=== PATIENT | female | born 1935 | race Caucasian/White ===

== ENCOUNTER 2020-09-12 10:04 | Observation (INO) | payer MEDICARE ==
[~2020-09-12] VITALS: Ht 160 cm; Wt 84.4 kg
[~2020-09-12 10:04] MED LIST: SEPTRA DS TABL1 EACH PO; TOPROL XL25 MG PO
--- NOTE | 2020-09-12 13:18 | EKG ---
[facility] [address] [facility] [place] [address] Signed Atrial fibrillation with rapid ventricular response Voltage criteria for left ventricular hypertrophy Marked ST abnormality, possible inferolateral subendocardial injury Abnormal ECG No previous ECGs available Confirmed by SURJIT CARROLL MD ([id number]) on 09/12/2020 1:18:21 PM Electronically Signed By: SURJIT CARROLL MD 09/12/20 1318 PATIENT NAME: RONY MEYER Electrocardiogram DATE OF : 39 PHYSICIAN: SURJIT CARROLL MD REPORT #: [id number] REPORT IS CONFIDENTIAL AND NOT TO BE RELEASED WITHOUT AUTHORIZATION
--- NOTE | 2020-09-12 14:50 | NUR ---
REPORT RECEIVED FROM Domenico GONZALEZ, WILL CONTINUE PLAN OF CARE WHEN PT ARRIVES.
--- NOTE | 2020-09-12 16:21 | NUR ---
PT ARRIVED TO CCU AT ABOUT 1510. PT ALERT AND ORIENTED AND BROUGHT DOWN VIA STRETCHER BY SLOT ROUTER WITH BELONGINGS AND DAUGHTER. PT ASSISTED ONTO THE BED USING THE DRAW SHEET AND 2 OTHER RNS. AFTER TAKING VITALS PT NEEDED TO VOID, PT ASSISTED UP TO BSC TO VOID AND ALSO HELPED BACK INTO BED. PT NOW LAYING IN BED, PT REPORTS NO SOB, DYSPNEA, OR PAIN WHEN ASKED. SCHEDULED MEDICATIONS ADMINISTERED AT THIS TIME AND ASSESSMENT COMPLETED. LUNGS ARE CLEAR/DIMINISHED IN BASES, PT ON ROOM AIR, SPO2 97%, ABDOMEN SOFT, NO PAIN UPON PALPATION, AND ACTIVE, SKIN IS DRY ON LOWER LEGS/FEET BILAT AND EDEMATOUS 2+ WITH SOME REDDNESS AROUND THE SHINS. PT STATES THE AREA IS SENSITIVE. RADIAL PULSES STRONG PEDAL PULSES +1. PT NOW IN BED AND REPORTS NO FURTHER NEEDS, DAUGHTER AT BEDSIDE. WILL CONTINUE PLAN OF CARE, CALL LIGHT IN REACH, BED IN LOWEST POSITION, IVF INFUSING.
--- NOTE | 2020-09-12 17:43 | NUR ---
THIS RN IN TO CHECK ON PT, PT LAYING IN BED AWAKE AND ALERT, LAB IN TO DRAW BLOOD, DAUGHTER AT BEDSIDE. PT STATED SHE WAS HAVING MILD HEADACHES 3/10 AND BUT STATED IT HAD BEEN WORSE A FEW MINUTES EARLIER BUT STATED SHE DID NOT NEED ANY PAIN MEDICATION AT THIS TIME. DR. CARROLL NOTIFIED IN PERSON ON PT'S HEADACHE AND ASKED IF SHE COULD HAVE A PRN PAIN MEDICATION ON HER EMAR. NO NEW ORDERS AT THIS TIME, WILL CONTINUE PLAN OF CARE. CALL LIGHT IN REACH, BED IN LOWEST POSITION, DAUGHTER AT BEDSIDE, IVF INFUSING
--- NOTE | 2020-09-12 18:20 | NUR ---
LAB CALLED TO NOTIFY OF CRITICAL TROPONIN T VALUE OF 0.044 ON THIS PT. THIS RN NOTIFIED PRIMARY RN CAT.
--- NOTE | 2020-09-12 18:21 | NUR ---
THIS RN IN TO CHECK ON PT. PT LAYING IN BED AWAKE AND ALERT. PT STATES SHE STILL HAS A MILD HEADACHE BUT DENIED PAIN MEDICATION AT THIS TIME. PT REPORTS NO FURTHER NEEDS AT THIS TIME. DR. CARROLL AND DR. NGUYEN UPDATED ON PT'S CRITICAL LAB VALUE (SEE CHART). WILL CONTINUE PLAN OF CARE.
--- NOTE | 2020-09-12 19:01 | NUR ---
DR. NGUYEN IN ROOM TO GET CONSENT FOR SCOPE AT AROUND 1845. AFTERWARDS THIS RN RESPONDED TO PT CALL LIGHT. PT STATED SHE NEEDED TO VOID, PT ASSISTED UP TO BEDSIDE COMMODE. BEDCHANGE DONE AT THIS TIME DUE TO "DRIBBLING" AND NEW PAD GIVEN TO PT AT THIS TIME. PT REPORTS NO FURTHER NEEDS AT THIS TIME AND DENIES PAIN. PT REPORTS NO FURTHER NEEDS AT THIS TIME, WILL CONTINUE PLAN OF CARE. CALL LIGHT IN REACH, BED IN LOWEST POSITION, IVF INFUSING ORDERED, LR ON STRAIGHT TUBING AT BEDSIDE.
--- NOTE | 2020-09-12 19:29 | NUR ---
MINISTER OF RELIGION AND [employer] NURSE IN TO UPDATE PT ON PROCEDURE AND TRANSFER HER FOR HER EGD AND CONTINUE PLAN OF CARE.
--- NOTE | 2020-09-12 19:30 | NUR ---
SHIFT REPORT RECEIVED FROM DANY SHELTON. PT OFF UNIT FOR EGD WITH CARL. Kmep RN
--- NOTE | 2020-09-12 20:07 | NUR ---
PT BACK TO ROOM AT THIS TIME, ROLL OVER PRESS OPERATOR AT BEDSIDE.
--- NOTE | 2020-09-12 20:11 | NUR ---
09/12/202010 Dinah Bocanegra 2004-PATIENT ARRIVED BACK TO ROOM 127 FOR RECOVERY. PATIENT REACTIVE TO VERBAL STIMULI EYES CLOSED. ANSWERING QUESTIONS. DENIES PAIN OR NAUSEA. 6L MASK RR EVEN 100% SR. NO DRAINAGE NOTED. IVF INFUSING.
--- NOTE | 2020-09-12 20:12 | CONS ---
[facility] [address] [place], [place] [address] Signed DATE OF CONSULTATION: 09/12/2020 CHIEF COMPLAINT: Nausea and vomiting. HISTORY OF PRESENT ILLNESS: Jessi is an 85-year-old female who has never had any dysphagia whatsoever. She was eating steak 3 or 4 days ago and it got stuck in her esophagus. She has had nausea, vomiting, and anorexia ever since. Of course, she cannot take her metoprolol, so now her atrial fibrillation has rapid ventricular rate. She was in the emergency room earlier today. She was given Cardizem and Lopressor IV and that has helped tremendously to bring her rate down right around 100. Her troponin is a little elevated, but it is from the tachycardia. She has been admitted by the Internal Medicine service. I have been asked to see her for consultation for upper endoscopy and removal of the foreign body. Jessi tells me she has no previous dysphagia and has never had anything stuck previously. She said she loves steak and eats it frequently. She is now in the ICU under monitored care. PAST MEDICAL HISTORY: Hypertension, atrial fibrillation. PAST SURGICAL HISTORY: lazy eye, appendectomy, and partial hysterectomy. SOCIAL HISTORY: She does not smoke or drink. She had five children. She lost two children. She lives with her son who has been with her whole life. She drives. She is retired from office work. Her son, is a registered nurse at [phone]. Jessi and her son Jagdeep have an apartment. She is single at this point. She drives. Dr. Bhupendra Sampson is her primary care provider. She prefers the [facility]. FAMILY HISTORY: A sister had some type of abdominal cancer. REVIEW OF SYSTEMS: She had 10 systems reviewed and no new findings. ALLERGIES: None. MEDICATIONS: Metoprolol 25 mg p.o. daily. Electronically Signed By: LOPEZ NGUYEN MD 09/12/202011 PATIENT NAME: JESSI MEYER CONSULTATION DATE OF : 39 REPORT #: [id number] PHYSICIAN: LOPEZ NGUYEN MD PCP: BHUPENDRA WEBB DO REPORT IS CONFIDENTIAL AND NOT TO BE RELEASED WITHOUT AUTHORIZATION [facility] [address] [place], [place] [address] Signed PHYSICAL EXAMINATION: VITAL SIGNS: Her blood pressure is 176/95, heart rate 86, respiratory rate 16, temperature of 97.7. She is 100% on room air. She is 5 feet 3 inches at 84 kg. GENERAL: Jessi is an 85-year-old female lying supine in her ICU bed. She does not appear ill or toxic. She is very pleasant, answers appropriately. LUNGS: Generally clear to auscultation bilaterally. HEART : Little tachycardic around 103, but it is sinus. There is no murmur. ABDOMEN: Soft, nontender. Currently she is controlling her secretions. LABORATORY DATA: Her white blood count is 6.8, hemoglobin 14, neutrophils 83. Electrolytes are unremarkable. Troponin is 0.044, which is slightly elevated. Urinalysis showed some bacteria. The liver function tests are negative. Albumin is 4.0. The COVID is negative. RADIOGRAPHIC STUDIES: A barium swallow was done and she appears to have a foreign body in the mid to distal esophagus. ASSESSMENT AND PLAN: Jessi is an 85-year-old female who presents with an esophageal foreign body, namely steak. She is medically stable at this point. I have reviewed this with our hospitalist, Dr. Vonnie Meléndez. We will plan on taking her to the endoscopy suite shortly under monitored anesthesia care for upper endoscopy and removal of the foreign body. There is risk including, but not limited to gas bloating, crampy abdominal pain, bleeding, perforation requiring surgery, and missed diagnosis. She has expressed understanding and would like to proceed. Lopez Nguyen MD [facility]/MODL /[id number] cc: DO Lopez Treviño MD Electronically Signed By: LOPEZ NGUYEN MD 09/12/202011 PATIENT NAME: JESSI MEYER CONSULTATION DATE OF : 39 REPORT #: [id number] PHYSICIAN: LOPEZ NGUYEN MD PCP: BHUPENDRA WEBB DO REPORT IS CONFIDENTIAL AND NOT TO BE RELEASED WITHOUT AUTHORIZATION [facility] [address] [place] [address] [place], [place] [address] Signed Copies: BHUPENDRA WEBB ANDREW L MD ~ Electronically Signed By: LOPEZ NGUYEN MD 09/12/202011 PATIENT NAME: JESSI MEYER CONSULTATION DATE OF : 39 REPORT #: [id number] PHYSICIAN: LOPEZ NGUYEN MD PCP: BHUPENDRA WEBB DO REPORT IS CONFIDENTIAL AND NOT TO BE RELEASED WITHOUT AUTHORIZATION
--- NOTE | 2020-09-12 20:45 | NUR ---
REPORT RECEIVED FROM APPAREL MANUFACTURE INSTRUCTORALEXUS. ASSESSMENT COMPLETED AT THIS TIME. PT IS SLIGHLY DROWSY, BUT IS ORIENTED. DENIES PAIN. LUNGS CLEAR, DIM IN BASES, RA. HR REGULAR. BOWEL TONES ACTIVE. SKIN GROSSLY INTACT, EDEMA PRESENT IN BLE. IV INTACT, DRESSING CHANGED, FLUIDS INFUSING WNL. PT UP TO BSC WITH SBA, VOIDED AND RETURNED TO BED. PT PROVIDED WITH ICE CHIPS AND SOME WATER PER REQUEST. NO FURTHER REQUESTS, CALL LIGHT WITHIN REACH.
--- NOTE | 2020-09-12 22:33 | EKG ---
[facility] [address] [facility] [place] [address] Signed Normal sinus rhythm Voltage criteria for left ventricular hypertrophy Abnormal ECG When compared with ECG of 12-SEP-2020 10:54, (Unconfirmed) Sinus rhythm has replaced Atrial fibrillation Vent. rate has decreased BY [address] no longer depressed in Inferior leads ST no longer depressed in Lateral leads Nonspecific T wave abnormality has replaced inverted T waves in Lateral leads Confirmed by SURJIT CARROLL MD ([id number]) on 09/12/2020 10:32:56 PM Electronically Signed By: SURJIT CARROLL MD 09/12/20 2233 PATIENT NAME: RONY MEYER Electrocardiogram DATE OF : 39 PHYSICIAN: SURJIT CARROLL MD REPORT #: [id number] REPORT IS CONFIDENTIAL AND NOT TO BE RELEASED WITHOUT AUTHORIZATION
--- NOTE | 2020-09-12 22:56 | NUR ---
PT DENIES COMPLAINTS OR REQUESTS AT THIS TIME. CALL LIGHT REMAINS WITHIN REACH.
--- NOTE | 2020-09-13 00:09 | NUR ---
PT SLEEPING AT THIS TIME, NO APPARENT DISTRESS. RESPIRATIONS EVEN AND UNLABORED, REMAINS ON ROOM AIR. VITAL SIGNS STABLE. IV INTACT, FLUIDS INFUSING WNL. WILL ALLOW FOR REST AND CONTINUE TO MONITOR.
--- NOTE | 2020-09-13 01:19 | NUR ---
PT CALLED TO USE BATHROOM. UP WITH 1-PA TO BS, VOIDED 225ML YELLOW URINE WITH A STRONG ODOR. PT ABLE TO DO OWN PERICARE AND RETURNED TO BED. VITAL SIGNS STABLE. LUNGS CLEAR, RA. CONTINUES TO DENY PAIN. CALL LIGHT WITHIN REACH. IV INTACT, FLUIDS INFUSING WNL.
--- NOTE | 2020-09-13 02:38 | NUR ---
WHILE IN ROOM TO GIVE SCHEDULE METOPROLOL, PT REPORTED 5/10 HEADACHE PAIN. N.I.O. ENTERED FOR PRN TYLENOL, GIVEN AT THIS TIME. FRESH ICE CHIPS PROVIDED PER REQUEST. PT DENIES FURTHER REQUESTS AT THIS TIME.
--- NOTE | 2020-09-13 04:29 | NUR ---
PT APPEARS TO BE SLEEPING AT THIS TIME, NO APPARENT DISTRESS, RESPIRATIONS EVEN AND UNLABORED. HR:77, RR:14, SPO2:95% ON RA.
--- NOTE | 2020-09-13 05:15 | NUR ---
PT CALLED TO USE BATHROOM, UP TO BSC WITH 1-PA. PT VOIDED 150ML, PROVIDED OWN PERICARE. NEW PERIPAD PROVIDED. ASSESSMENT COMPLETED AND UNCHANGED. PT REPORTS HER HEADACHE HAS RESOLVED. DENIES FURTHER REQUESTS AT THIS TIME, CALL LIGHT WITHIN REACH.
--- NOTE | 2020-09-13 06:02 | OR ---
[facility] [address] [place], [place] [address] Signed DATE OF OPERATION: 09/12/2020 SURGEON: Lopez Nguyen MD PREOPERATIVE DIAGNOSES: 1. Esophageal foreign bodies (steak). 2. esophagus. POSTOPERATIVE DIAGNOSES: 1. Esophageal foreign bodies (steak). 2. esophagus. 3. Mild distal gastritis. PROCEDURES: EGD with CLOtest and biopsies of the antrum and removal of foreign body. ESTIMATED BLOOD LOSS: None. INDICATIONS: Jessi is an 85-year-old female who 3.5 to 4 days ago, had a piece of steak get stuck in her distal esophagus. She has had nausea and vomiting ever since. She finally decided to come to the emergency room for evaluation. Apparently, she has never experienced any dysphagia previously. She has been unable to take the metoprolol because of the steak in her esophagus. Consequently, she is in atrial fibrillation with rapid ventricular rate. She was admitted to the Internal Medicine Service and given Cardizem and IV Lopressor with good results. I was asked to see her as a general surgeon on-call. I met with Jessi in the hospital and I reviewed the above findings. I explained to her the need for upper endoscopy. She understands upper endoscopy along with its risks including, but not limited to gas, bloating, crampy abdominal pain, bleeding, perforation requiring surgery, and missed diagnosis. She had expressed understanding and wished to proceed. PROCEDURE NOTE: Jessi was taken into the endoscopy suite and placed in a supine semi-recumbent position under general endotracheal tube anesthesia. The upper gastroscope was then introduced and advanced under direct visualization of the camera without difficulty. We took a couple of pieces of the steak out with our basket and then we pushed the steak through into the fundus itself. The scope was passed out into the duodenum without difficulty. The duodenum and pyloric channel were unremarkable. Antrum showed some Electronically Signed By: LOPEZ NGUYEN MD 09/13/20 0602 PATIENT NAME: JESSI MEYER OPERATIVE REPORT DATE OF : 39 REPORT #: [id number] PHYSICIAN: LOPEZ NGUYEN MD PCP: BHUPENDRA WEBB DO REPORT IS CONFIDENTIAL AND NOT TO BE RELEASED WITHOUT AUTHORIZATION [facility] [address] [place], [place] [address] Signed very mild patchy erythematous changes. We went ahead and took a biopsy of the antrum for CLOtest as well as pathologic review. Upon retroflexion of the scope, we really cannot see an obvious hiatal hernia. If she has one, it is quite small. The scope was withdrawn up to the area of the GE junction, which was compliant without stricture. No Soto's mucosa. We saw a little irritation in the distal esophagus associated with the foreign body. No obvious stricture. The middle and upper esophagus were unremarkable. After this, the gas was suctioned out and the gastroscope removed. Jessi tolerated the procedure quite well. RECOMMENDATIONS: Jessi will be returned to her room under the Internal Medicine Service. She can follow up my office in 7 to 14 days for review and outpatient barium swallow. Lopez Nguyen MD [facility]/MODL /[id number] cc: MD Bhupendra Jay DO Copies: LOPEZ NGUYEN MD, ARIAN DO ~ Electronically Signed By: LOPEZ NGUYEN MD 09/13/20 0602 PATIENT NAME: JESSI MEYER OPERATIVE REPORT DATE OF : 39 REPORT #: [id number] PHYSICIAN: LOPEZ NGUYEN MD PCP: BHUPENDRA WEBB DO REPORT IS CONFIDENTIAL AND NOT TO BE RELEASED WITHOUT AUTHORIZATION
--- NOTE | 2020-09-13 06:55 | NUR ---
IV SALINE LOCKED PER DR. CARROLL. MAY ALSO ADVANCE DIET TOLERATED IN ANTICIPATION OF PT DISCHARGING HOME TODAY.
--- NOTE | 2020-09-13 07:30 | NUR ---
Pt lives in an apartment in [place] with her son whom she states has issues. He is not disabled at this time. He assists her at times, but most of the time is unable to do so. Her other children are upset by is lack of assisting, pt. Per pt, she is not bothered by this and needs to have a family meeting to to tell them all to get along. 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 She states she is financially ok and has the money to pay outside help. She denies needs from CM and knows of family issues. We discussed this is something they will need to work on as a family and she states she is aware. Daughter is an RN and I spoke with her rodney- ryland visit with mom. She assists mom as needed and will pick pt up to transport home today.
--- NOTE | 2020-09-13 07:30 | NUR ---
RECEIVED CRITICAL TROP VALUE. TRENDING DOWN. PRIMARY RN NOTIFIED.
--- NOTE | 2020-09-13 07:30 | NUR ---
PATIENT SHIFT REPORT RECIEVED FROM GATEHOUSE ATTENDANT RN. PATIENT RESTING IN BED AT THIS TIME. WILL CONTINUE TO CLOSELY MONITOR.
--- NOTE | 2020-09-13 08:29 | NUR ---
RASCH IN TO SEE PATIENT. PER MD LABS ARE IMPROVED THIS AM AND PATIENT CAN DISCHARGE HOME AFTER HAVING BREAKFAST AND MAKING SURE SHE CAN SWALLOW BETTER, GETTING UP AND WALKING AND MONITORING NEW ONSET A.FIB FOUND IN THE ER ON ADMISSION, AND ONCE CASE MANAGEMENT SEES HER TO HELP WITH DISCHARGE ARRAINGMENTS. PATIENT IS AGREEABLE TO PLAN OF CARE. NO OTHER NEEDS AT THIS TIME. WILL CONTINUE TO CLOSELY MONITOR.
[2020-09-13] MEDS ORDERED: TOPROL XL50 MG PO (09:18)
[2020-09-13] MEDS ORDERED: K-TAB10 MEQ PO (09:18)
[2020-09-13] MEDS ORDERED: MAGOX 400400 MG PO (09:18)
--- NOTE | 2020-09-13 09:19 | NUR ---
MED REC COMPLETE
--- NOTE | 2020-09-13 10:00 | NUR ---
PATIENTS DAUGHTERT AT THE BEDSIDE. PATIENT UP TO THE BATHROOM AND THEN ASSISTED WITH WALKING IN THE HALLWAY. PATIENTS HR REMAINED STABLE INTHE 80-90'S IN A NSR. IV REMOVED. PATIENTS DAUGHTER IS NOW HELPING HER WITH GETTING DRESSED. WILL REVIEW EDUCATION PAPERWORK WHEN THEY ARE FINISHED.
--- NOTE | 2020-09-13 10:45 | NUR ---
PATIENT DISCHARGE EDUCATION GIVEN. PATIENTS DAUGHTER AT THE BEDSIDE TO REVIEW EDUCATION AND DISCHARGE PLAN. IV REMOVED. PATIENT AND DAUGHTER AGREED TO DISCHARGE INSTRUCTIONS. MEDICATIONS REVIEWED. ALL BELONGINGS GATHERED AND SENT WITH PATIENT. THIS RN TOOK PATIENT TO THE FRONT AND ASSISTED INTO HER DAUGHTER VEHICLE WITH NO ISSUES. NO OTHER NEEDS AT THIS TIME. NO FURTHER QUESTIONS.
--- NOTE | 2020-09-13 14:01 | NUR ---
PT ALERT, ORIENTED AND SITTING IN CHAIR EATING AM MEAL. PT FEELS MUCH BETTER, AND PLANS ON DC LATER THIS AM. DAUGHTER MIRYAM WILL BE HERE FOR DC. PT STATED THIS BEGAN ON CHOKING ON A PIECE OF STEAK. GAVE ENCOURAGEMENT, PT REQUESTED PRAYER AND LEFT G.POST. WILL FOLLOW
--- NOTE | 2020-09-17 20:21 | PATH ---
[facility] [address] [place], [place] [address] Signed SPECIMEN(S): A ANTRUM/PYLORUS SPECIMEN SOURCE: A. ANTRUM/PYLORUS CLINICAL HISTORY: Esophageal foreign body MICROSCOPIC DESCRIPTION: Histologic sections of all submitted blocks are examined by light microscopy. These findings, together with the gross examination, support the pathologic diagnosis. FINAL PATHOLOGIC DIAGNOSIS: Stomach, antrum/pylorus, biopsy: - Antral mucosa with focal foveolar hyperplasia and focal mild chronic inflammation. - Negative for Helicobacter organisms on HE stain. - Negative for dysplasia or malignancy. NAL:cml:C2NR GROSS DESCRIPTION: The specimen, labeled "Jessi Meyer, #1," and designated on the requisition "antrum/pylorus biopsy," is received in formalin and consists of one hill soft tissue fragment that measures 0.4 cm in greatest dimension. The specimen is entirely submitted in cassette (A1). FB (under the direct supervision of a pathologist) The Gross Description was prepared using a voice recognition system. The report was reviewed for accuracy; however, sound-alike word errors, addition and/or deletions may occur. If there is any question about this report, please contact Client Services. PERFORMING LABORATORY: The technical component was performed by [facility], [address] [place] [id number] (Universal Grinder Operator: Namita Rao MD; CLIA# [id number]). [facility], [address] [address] (CLIA# [id number]). Diagnostician: Bhakti Montana MD Pathologist Electronically Signed 09/17/2020 PATIENT NAME: JESSI MEYER PATHOLOGY DATE OF : 39 REPORT #: [id number] PHYSICIAN: [facility] PCP: FRANCESCA WEBB DO REPORT IS CONFIDENTIAL AND NOT TO BE RELEASED WITHOUT AUTHORIZATION [address] [address] Signed Copies: ~ PATIENT NAME: JESSI MEYER PATHOLOGY DATE OF : 39 REPORT #: [id number] PHYSICIAN: [facility] PCP: FRANCESCA WEBB DO REPORT IS CONFIDENTIAL AND NOT TO BE RELEASED WITHOUT AUTHORIZATION
== END 2020-09-13 10:40 | disposition home or self-care (01) ==
LOC: ED 10:04 → CCU 10:06
PROVIDERS: Colon & Rectal Surgery; ADMIT Internal Medicine; ATTEND Internal Medicine
PROC: 0DB78ZX Excision of Stomach, Pylorus, Via Natural or Artificial Opening Endoscopic, Diagnostic (ICD-10-PCS; principal; 2020-09-12 19:11)
DX: T18.128A Food in esophagus causing other injury, initial encounter (principal); X58.XXXA Exposure to other specified factors, initial encounter; Y93.89 Activity, other specified; I10 Essential (primary) hypertension; I48.91 Unspecified atrial fibrillation; R00.0 Tachycardia, unspecified; I21.A1 Myocardial infarction type 2; R13.19 Other dysphagia; Z20.822 Contact with and (suspected) exposure to COVID-19; E66.9 Obesity, unspecified; Z91.19 Patient's noncompliance with other medical treatment and regimen
CPT/HCPCS: 36415; 74230; 80048; 80053; 81001; 82550; 82553; 83874; 84484; 85025; 85379; 86677; 87077; 87088; 87186; 88305; 93005; 93010; 96374; 96375; 96376; 99285-25; C9113; C9803; G0378; J1100; J2001; J2370; J2405; J2704; J3010; J3480; J7120; U0003